=== PATIENT | male | born 1980 | race Caucasian/White ===

== ENCOUNTER 2018-09-03 18:46 | Emergency (ER) | payer SELFPAY ==
[~2018-09-03] VITALS: Ht 182.9 cm; Wt 70.8 kg
[~2018-09-03 18:46] MED LIST: EFAV1TAB; SULFAMETHOXAZOLE; TRIMETHOPRIM
[2018-09-03 18:52] VITALS: BP 139/103
--- NOTE | 2018-09-03 20:22 | NUR ---
PT AMBULATORY TO CHAIR W/ STEADY GAIT.
[2018-09-03 22:00] VITALS: BP 137/85
--- NOTE | 2018-09-03 22:00 | NUR ---
Patient discharged with v/s stable. Written and verbal after care instructions given and explained. Patient alert, oriented and verbalized understanding of instructions. Ambulatory with steady gait. All questions addressed prior to discharge. ID band removed. Patient advised to follow up with PMD. Rx of DESCOVY 200MG AND PREZCOBIX 800/150 given. Patient educated on indication of medication including possible reaction and side effects. Opportunity to ask questions provided and answered.
== END 2018-09-03 22:00 | disposition home or self-care (01) ==
LOC: MED 18:46
DX: Z76.0 Encounter for issue of repeat prescription (principal)
CPT/HCPCS: 99283

== ENCOUNTER 2018-11-24 16:33 | Emergency (ER) | payer MEDICAID ==
[~2018-11-24] VITALS: Ht 195.6 cm; Wt 79.0 kg
[2018-11-24 16:36] VITALS: BP 140/90
--- NOTE | 2018-11-24 16:56 | NUR ---
PT WALKED IN FOR HIV MEDICATION REFILL. DENIES N/V/D; SKIN IS PINK/WARM/DRY; AAOX4 WITH EVEN AND STEADY GAIT; PT DENIES ANY FEVER, CP, SOB, OR COUGH AT THIS TIME; PATIENT STATES PAIN OF 0/10 AT THIS TIME; VSS; PATIENT POSITIONED FOR COMFORT ON CHAIR; ER MD MADE AWARE OF PT STATUS.
[2018-11-24 18:05] VITALS: BP 142/87
--- NOTE | 2018-11-24 18:05 | NUR ---
Patient discharged with v/s stable. Written and verbal after care instructions given and explained. Patient alert, oriented and verbalized understanding of instructions. Ambulatory with steady gait. All questions addressed prior to discharge. ID band removed. Patient advised to follow up with PMD. Rx of Mirna Ruggierobinick given. Patient educated on indication of medication including possible reaction and side effects. Opportunity to ask questions provided and answered.
== END 2018-11-24 18:05 | disposition home or self-care (01) ==
LOC: MED 16:33
DX: Z76.0 Encounter for issue of repeat prescription (principal); Z88.8 Allergy status to other drugs, medicaments and biological substances; Z79.899 Other long term (current) drug therapy
CPT/HCPCS: 99283

== ENCOUNTER 2019-12-31 13:01 | Emergency (ER) | payer MEDICAID ==
[~2019-12-31] VITALS: Ht 182.9 cm; Wt 72.6 kg
[2019-12-31 13:30] VITALS: BP 106/59
--- NOTE | 2019-12-31 13:34 | NUR ---
COVID SWAB DONE.
[2019-12-31 14:21] LABS: BASOPHILS % (AUTO) 0.5 % (0.0-2.0); HEMATOCRIT 42.9 % (36-52); HEMOGLOBIN 14.7 g/dL (12.0-18.0); LYMPHOCYTES # (AUTO) 2.2 K/uL (2.0-11.5); LYMPHOCYTES % (AUTO) 30.7 % (20.5-51.1); MEAN CORPUSCULAR HEMOGLOBIN 31 pg (27-31); MEAN CORPUSCULAR HGB CONC 34 g/dL (33-37); MONOCYTES # (AUTO) 0.7 K/uL (0.8-1.0); MONOCYTES % (AUTO) 9.8 % (1.7-9.3); NEUTROPHILS # (AUTO) 4.2 K/uL (1.8-7.7); PLATELET COUNT (AUTO) 224 K/uL (140-450); RED BLOOD CELL COUNT(AUTO) 4.72 MIL/uL (4.20-6.10); RED CELL DISTRIBUTION WIDTH 13.4 % (11.6-13.7); WHITE BLOOD COUNT (AUTO) 7.1 K/uL (4.8-10.8)
[2019-12-31 14:31] LABS: C-REACTIVE PROTEIN QUANT 2.6 mg/dL (0.0-0.9)
[2019-12-31 14:35] LABS: PROTHROMBIN TIME 9.5 secs (10.8-13.4)
[2019-12-31 14:38] LABS: ANION GAP 13.9 (8-16); CARBON DIOXIDE 24.4 mmol/L (21-32); POTASSIUM 3.3 mmol/L (3.5-5.1); TOTAL BILIRUBIN 0.3 mg/dL (0.0-1.0)
[2019-12-31 15:05] LABS: LACTATE DEHYDROGENASE 210 U/L (85-227)
--- NOTE | 2019-12-31 15:58 | NUR ---
influenza and rsv swabs collected
[2019-12-31 16:49] LABS: RSV NEGATIVE (NEGATIVE)
[2019-12-31 17:56] VITALS: BP 102/69
--- NOTE | 2020-01-02 15:26 | NUR ---
COVID RESULTS RECEIVED FROM LAB. RESULT- NEGATIVE. COPY OF LAB RESULT PLACED IN INFECTION CONTROL MAILBOX.
== END 2019-12-31 15:58 | disposition home or self-care (01) ==
LOC: MED 13:01
DX: J10.1 Influenza due to other identified influenza virus with other respiratory manifestations (principal); Z20.828 Contact with and (suspected) exposure to other viral communicable diseases; Z86.19 Personal history of other infectious and parasitic diseases; Z79.899 Other long term (current) drug therapy; Z88.8 Allergy status to other drugs, medicaments and biological substances
CPT/HCPCS: 36415; 36600; 71045; 80053; 82550; 82728; 82803; 83605; 83615; 83880; 84484; 85025; 85379; 85384; 85610; 85730; 86140; 87040; 87420; 87804; 93005; 99285; U0003

== ENCOUNTER 2023-09-30 13:11 | Emergency (ER) | payer MEDICAID ==
[~2023-09-30] VITALS: Ht 182.9 cm; Wt 72.6 kg
[2023-09-30 13:14] VITALS: BP 139/89; PULSE 107; RESP 18; TEMP 97.7; O2SAT 99
[2023-09-30] MEDS ORDERED: PENI250T21 PO (14:47)
[2023-09-30] MEDS ORDERED: ACET-8905 PO (14:47)
[2023-09-30 15:00] VITALS: BP 131/99; PULSE 87; RESP 18; TEMP 97.7; O2SAT 99
[2023-09-30] MEDS: MORPHINE SULFATE 4 MG/ML SYR IM ONE (15:05)
== END 2023-09-30 15:00 | disposition home or self-care (01) ==
LOC: MED 13:11
DX: B02.9 Zoster without complications (principal); K04.7 Periapical abscess without sinus; N28.9 Disorder of kidney and ureter, unspecified; Z79.899 Other long term (current) drug therapy
CPT/HCPCS: 96372; 99283; J2270